=== PATIENT | male | born 1960 | race Caucasian/White ===

== ENCOUNTER 2019-04-09 13:32 | Emergency (ER) | payer OTHER ==
[~2019-04-09] VITALS: Ht 182.9 cm; Wt 117.9 kg
[2019-04-09 13:58] LABS: BASOPHILS ABSOLUTE AUTO 0.03 K/mm3 (0.00-0.23); BASOPHILS PERCENT AUTO 0 % (0-2); EOSINOPHILS ABSOLUTE AUTO 0.05 K/mm3 (0.00-0.68); EOSINOPHILS PERCENT AUTO 0 % (0-6); Hematocrit 48.3 % (37.0-53.0); Hemoglobin 17.2 g/dL (13.5-17.5); IMMATURE GRAN ABSOLUTE AUTO 0.08 K/mm3 (0.00-0.10); IMMATURE GRAN PERCENT AUTO 1 % (0-1); LYMPHOCYTES ABSOLUTE AUTO 2.31 K/mm3 (0.84-5.20); LYMPHOCYTES PERCENT AUTO 14 % (21-46); MONOCYTES ABSOLUTE AUTO 0.88 K/mm3 (0.16-1.47); MONOCYTES PERCENT AUTO 6 % (4-13); Mean Corpuscular HGB Conc 35.6 g/dL (31.5-36.5); Mean Corpuscular Volume 87 fL (80-100); Mean Platelet Volume 8.7 fL (9.1-12.4); NEUTROPHILS ABSOLUTE AUTO 12.71 K/mm3 (1.96-9.15); NEUTROPHILS PERCENT AUTO 79 % (41-73); Platelet Count 257 K/mm3 (150-400); RDW Coefficient Variation 11.4 % (11.7-14.2); RDW Standard Deviation 36.9 fL (35.1-46.3); Red Blood Cell Count 5.55 M/mm3 (4.30-5.90); White Blood Cell Count 16.06 K/mm3 (4.00-11.30)
[2019-04-09 14:28] LABS: Albumin, Blood 3.8 g/dL (3.4-5.0); Albumin/Globulin Ratio 1.1 (0.8-1.8); Bilirubin, Total 0.6 mg/dL (0.1-1.0); Bun/Creatinine Ratio 27.5 (12.0-20.0); Calcium, Blood 9.5 mg/dL (8.5-10.1); Creatinine, Blood 1.53 mg/dL (0.60-1.20); Globulin, Blood 3.6 g/dL (2.2-4.0); Potassium, Blood 3.7 mmol/L (3.5-5.5); Total Protein, Blood 7.4 g/dL (6.4-8.2)
[2019-04-09 15:46] LABS: Source, Urine Clean Catch
[2019-04-09] MEDS ORDERED: CHLO25B (16:03)
[2019-04-09] MEDS ORDERED: METF500 (16:04)
[2019-04-09] MEDS ORDERED: GLIP5 (16:04)
[2019-04-09 16:14] LABS: Bilirubin, Urine Neg (Neg); Blood, Urine Neg (Neg); Glucose Qualitative, Urine Neg (Neg); Ketones, Urine 1+ (Neg); Leukocyte Esterase, Urine Neg (Neg); Nitrite, Urine Neg (Neg); Protein, Urine 2+ (Neg); Urobilinogen, Urine NORM (Normal)
[2019-04-09 16:29] LABS: Appearance, Urine Clear (Clear); Color, Urine Yellow (P-Yellow)
[2019-04-09 16:39] LABS: U Amphetamine Screen Not Detected; U Barbituate Screen Not Detected; U Benzodiazapine Screen Not Detected; U Buprenorphine Screen Not Detected; U Cannabinoids Screen DETECTED; U Cocaine Screen Not Detected; U Methadone Screen Not Detected; U Methamphetamine Screen Not Detected; U Opiates Screen DETECTED; U Oxycodone Screen Not Detected; U Phencyclidine Screen Not Detected; U Propoxyphene Screen Not Detected
[2019-04-09 16:45] LABS: Bacteria Few /hpf; Red Blood Cells, Urine 0-2 /hpf (0-2); Squamous Epithelial Cells Few /hpf (Few)
== END 2019-04-09 17:15 | disposition home or self-care (01) ==
LOC: ER 13:32
PROVIDERS: Emergency Medicine
DX: R53.1 Weakness (principal); R41.0 Disorientation, unspecified; N28.9 Disorder of kidney and ureter, unspecified; E11.9 Type 2 diabetes mellitus without complications; Z86.73 Personal history of transient ischemic attack (TIA), and cerebral infarction without residual deficits
CPT/HCPCS: 70450; 80053; 81001; 82947; 85025; 93005; 93010; 99285-25; G0480

== ENCOUNTER 2019-10-17 16:35 | Emergency (ER) | payer OTHER ==
[~2019-10-17] VITALS: Ht 188 cm; Wt 104.3 kg
[~2019-10-17 16:35] MED LIST: CHLO25B; GLIP5; METF500
[2019-10-17] MEDS ORDERED: Metformin HCl750 MG PO (18:47)
[2019-10-17] MEDS ORDERED: Aspir 8181 MG PO (18:47)
[2019-10-17] MEDS ORDERED: LISI20 PO (18:49)
[2019-10-17] MEDS ORDERED: CHLO25B PO (18:49)
[2019-10-17] MEDS ORDERED: BASAGLAR K100 UNIT/2 SC (20:00)
== END 2019-10-17 17:44 | disposition home or self-care (01) ==
LOC: ER 16:35
DX: R53.1 Weakness (principal); R20.2 Paresthesia of skin; E11.9 Type 2 diabetes mellitus without complications; F17.200 Nicotine dependence, unspecified, uncomplicated; Z86.73 Personal history of transient ischemic attack (TIA), and cerebral infarction without residual deficits; Z79.84 Long term (current) use of oral hypoglycemic drugs
CPT/HCPCS: 99285-25

== ENCOUNTER 2019-10-17 17:44 | Inpatient (IN) | payer OTHER ==
[~2019-10-17] VITALS: Ht 182.9 cm; Wt 99.0 kg
[2019-10-17 18:28] LABS: BASOPHILS ABSOLUTE AUTO 0.03 K/mm3 (0.00-0.23); BASOPHILS PERCENT AUTO 0 % (0-2); EOSINOPHILS ABSOLUTE AUTO 0.03 K/mm3 (0.00-0.68); EOSINOPHILS PERCENT AUTO 0 % (0-6); Hemoglobin 14.2 g/dL (13.5-17.5); IMMATURE GRAN ABSOLUTE AUTO 0.13 K/mm3 (0.00-0.10); IMMATURE GRAN PERCENT AUTO 1 % (0-1); LYMPHOCYTES ABSOLUTE AUTO 1.45 K/mm3 (0.84-5.20); LYMPHOCYTES PERCENT AUTO 8 % (21-46); MONOCYTES ABSOLUTE AUTO 1.12 K/mm3 (0.16-1.47); MONOCYTES PERCENT AUTO 6 % (4-13); Mean Corpuscular HGB Conc 34.6 g/dL (31.5-36.5); Mean Corpuscular Volume 92 fL (80-100); Mean Platelet Volume 8.8 fL (9.1-12.4); NEUTROPHILS ABSOLUTE AUTO 15.96 K/mm3 (1.96-9.15); NEUTROPHILS PERCENT AUTO 85 % (41-73); Platelet Count 228 K/mm3 (150-400); RDW Coefficient Variation 11.3 % (11.7-14.2); RDW Standard Deviation 38.5 fL (35.1-46.3); Red Blood Cell Count 4.44 M/mm3 (4.30-5.90); White Blood Cell Count 18.72 K/mm3 (4.00-11.30)
[2019-10-17] MEDS ORDERED: Aspir 8181 MG PO (18:47)
[2019-10-17] MEDS ORDERED: Metformin HCl750 MG PO (18:47)
[2019-10-17 18:49] LABS: Alanine Aminotransfer (ALT/SGP 25 U/L (12-78); Albumin, Blood 3.5 g/dL (3.4-5.0); Albumin/Globulin Ratio 0.9 (0.8-1.8); Alk Phos 59 U/L (50-136); Anion Gap 11 mmol/L (6-16); Aspartate Aminotrans (AST/SGOT 12 U/L (12-37); Bilirubin, Total 0.8 mg/dL (0.1-1.0); Blood Urea Nitrogen 45 mg/dL (8-24); Bun/Creatinine Ratio 22.6 (12.0-20.0); CO2, Blood 21 mmol/L (21-32); Calcium, Blood 9.1 mg/dL (8.5-10.1); Chloride, Blood 106 mmol/L (98-108); Creatinine, Blood 1.99 mg/dL (0.60-1.20); Ethanol (Alcohol), Blood, Med <3 mg/dL; Globulin, Blood 3.7 g/dL (2.2-4.0); Glomerular Filtration Rate 36 (60-); Glucose, Blood 178 mg/dL (70-99); Potassium, Blood 4.2 mmol/L (3.5-5.5); Sodium, Blood 138 mmol/L (136-145); Total Protein, Blood 7.2 g/dL (6.4-8.2)
[2019-10-17] MEDS ORDERED: CHLO25B PO (18:49)
[2019-10-17] MEDS ORDERED: LISI20 PO (18:49)
[2019-10-17 18:58] LABS: Source, Urine Clean Catch
[2019-10-17 19:01] LABS: Bilirubin, Urine Neg (Neg); Blood, Urine Neg (Neg); Glucose Qualitative, Urine Neg (Neg); Ketones, Urine Neg (Neg); Leukocyte Esterase, Urine Neg (Neg); Nitrite, Urine Neg (Neg); Protein, Urine Neg (Neg); Urobilinogen, Urine NORM (Normal)
[2019-10-17 19:05] LABS: Appearance, Urine Clear (Clear); Color, Urine Yellow (P-Yellow)
[2019-10-17 19:26] LABS: U Amphetamine Screen Not Detected; U Barbituate Screen Not Detected; U Benzodiazapine Screen Not Detected; U Buprenorphine Screen Not Detected; U Cannabinoids Screen Not Detected; U Cocaine Screen Not Detected; U Methadone Screen Not Detected; U Methamphetamine Screen Not Detected; U Opiates Screen Not Detected; U Oxycodone Screen Not Detected; U Phencyclidine Screen Not Detected; U Propoxyphene Screen Not Detected
[2019-10-17] MEDS ORDERED: BASAGLAR K100 UNIT/2 SC (20:00)
[2019-10-18 04:06] LABS: BASOPHILS ABSOLUTE AUTO 0.04 K/mm3 (0.00-0.23); BASOPHILS PERCENT AUTO 0 % (0-2); EOSINOPHILS ABSOLUTE AUTO 0.03 K/mm3 (0.00-0.68); EOSINOPHILS PERCENT AUTO 0 % (0-6); Hematocrit 41.5 % (37.0-53.0); Hemoglobin 14.1 g/dL (13.5-17.5); IMMATURE GRAN ABSOLUTE AUTO 0.12 K/mm3 (0.00-0.10); IMMATURE GRAN PERCENT AUTO 1 % (0-1); LYMPHOCYTES ABSOLUTE AUTO 1.81 K/mm3 (0.84-5.20); LYMPHOCYTES PERCENT AUTO 9 % (21-46); MONOCYTES ABSOLUTE AUTO 1.81 K/mm3 (0.16-1.47); MONOCYTES PERCENT AUTO 9 % (4-13); Mean Corpuscular HGB 31.5 pg (26.0-34.0); Mean Corpuscular Volume 93 fL (80-100); Mean Platelet Volume 8.9 fL (9.1-12.4); NEUTROPHILS ABSOLUTE AUTO 15.43 K/mm3 (1.96-9.15); NEUTROPHILS PERCENT AUTO 80 % (41-73); Platelet Count 214 K/mm3 (150-400); RDW Coefficient Variation 11.4 % (11.7-14.2); RDW Standard Deviation 38.7 fL (35.1-46.3); Red Blood Cell Count 4.47 M/mm3 (4.30-5.90); White Blood Cell Count 19.24 K/mm3 (4.00-11.30)
[2019-10-18 04:28] LABS: Anion Gap 10 mmol/L (6-16); Blood Urea Nitrogen 47 mg/dL (8-24); Bun/Creatinine Ratio 22.8 (12.0-20.0); CHOL/HDL RATIO 3.4; CO2, Blood 23 mmol/L (21-32); Calcium, Blood 9.1 mg/dL (8.5-10.1); Chloride, Blood 104 mmol/L (98-108); Cholesterol 178 mg/dL (50-200); Creatinine, Blood 2.06 mg/dL (0.60-1.20); Glomerular Filtration Rate 35 (60-); Glucose, Blood 175 mg/dL (70-99); HDL Cholesterol 52 mg/dL (>39); LDL/HDL RATIO 1.8; Low Density Lipoprotein Chol 93 mg/dL (0-110); Potassium, Blood 4.1 mmol/L (3.5-5.5); Sodium, Blood 137 mmol/L (136-145); Triglycerides 166 mg/dL (30-160); Very Low Density Lipoprot Chol 33 mg/dL (6-32)
--- NOTE | 2019-10-18 05:48 | NUR ---
SHIFT SUMMARY ASSUMED CARE OF PT AT 2220. 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 PT ASKED REPEATIVLY IF WE WILL EUTHANIZE HIM AND TO "PLEASE KILL ME". HEART SOUNDS REGULAR, PT RUNNING SINUS, DENIES CP. LUNG SOUNDS CLEAR, DENIES SOB. PT WAS INCONTINET T/O THE NIGHT, BUT ASKED FOR THE URINAL DESPITE ALREADY URINATING. PT STATES THAT HIS MOM TAKES CARE OF HIM AT HOME BUT ER NOTES SAY THAT HIS HAS BEEN TAKING CARE OF HIM. BED SIDE SWOLLOW EVALVE PROVED PT CAN SWOLLOW AM MEDICATIONS PER DOCTOR REQUEST BUT PT STILL NEEDS SPEECH EVALUATION. NO ACUTE EVENTS DURING THE NIGHT. PT SLEPT ALL NIGHT. CALL LIGHT IN REACH, BED IN LOWEST POSITION, WILL CONTINUE TO MONITOR UNTIL DAYSHIFT NURSE ARRIVES.
--- NOTE | 2019-10-18 12:26 | NUR ---
Pt resting in bed with his eyes closed. Pt is minimally responsive and breifly mumbles keeping his eyes closed. Assisted Bedside RN Jeanine with repositioning Pt in bed. Pt appears comfortable with no S/S of distress at this time. Spoke with Eduardo and discussed case. Prior to Pt visit spoke with Dr Tompkins and discussed case. Called and spoke with Pt's friend Andigwen and Pt's mother Becki through [address] conference call. Provided update and engaged in therapeutic discussion regarding code status. Educated on life sustaining measures including risk factor and implications. Mother Becki would like Pt to be DNR and is requesting friend Andigwen be the decision maker. Andigwen will make decisions for Pt as needed. Answered questions and discussed concerns. Family is requesting routine updates. Family expresses appreciation of call and reports no other concerns at this time. Spoke with Dr Tompkins and relayed family's wishes for DNR. Changed code status to DNR per V/O from Dr Tompkins. Palliative Care will remain available.
--- NOTE | 2019-10-18 18:32 | NUR ---
PT SUMMARY: PT STILL CONFUSED, UNABLE TO STATE NAME AND BUT IS ABLE TO ANSWER QUESTIONS, FLIGHT OF IDEAS DURING CONVERSATION. PT HAD MRI SCAN SHOWS ACUTE ISHEMIC ON R MCA, RIGHT CAROTID 100% OCCLUDED, LEFT CAROTID 60-50% OCC. EF 60-65% PER ECHO. PT IS NOT CANDIDATE FOR SURGERY AT THIS TIME PER DR. TAMY HOLBROOK TO CONTINUE PT/OT, PT CHANGED TO MEDICAL STATUS WITH NO TELE, VITALS HAS BEEN STABLE FOR THE SHIFT, ORDER TO KEEP PT NPO, CLINIMIX STARTED AT 125 MLS/HR. LUNGS COARSE ON THE UPPER LOBES ORAL SUCTION DONE OFTEN DUE TO INCREASE MUCUS. PT HAS BEEN REPOSITIONED Q 2HRS, STAYED IN BED MOST OF THE SHIFT, PALLIATIVE CONSULTED AND SWITCHED PT TO DNR STATUS. CALL LIGHTS WITHIN REACH WILL REPORT TO ONCOMING SHIFT
--- NOTE | 2019-10-18 19:24 | NUR ---
REPORT GIVEN TO KAM LAGOS, PT TO TRANSFER TO ROOM 305 MEDICAL FLOOR.
--- NOTE | 2019-10-18 19:45 | NUR ---
TRANSFER NOTE PATIENT TRANSFERED UP TO ROOM 305 AT APPROX THIS TIME. REPORT GIVEN TO PRIMARY RN BY DAY SHIFT RN. ALL BELONGINGS GATHERED AND SENT WITH PATIENT.
--- NOTE | 2019-10-18 19:50 | NUR ---
ASSUMED CARE RECEIVED REPORT FROM BRISEYDA GRIDCAP MACHINE OPERATOR. PT TRANSFERRED TO MEDICAL FLOOR VIA HOSPITAL BED, TRANSFERRED TO BED WITH ASSISTANCE OF 3. IN NO ACUTE DISTRESS, RESPS EVEN AND UNLABORED, DROWSY, BUT RESPONDING TO VERBAL STIMULI AND FOLLOWING SIMPLE DIRECTIONS. DENIES NEEDS AT THIS TIME. CALL LIGHT, POSSESSIONS IN REACH, WILL CONTINUE TO MONITOR.
--- NOTE | 2019-10-19 00:50 | NUR ---
SPOKE TO KARRI ZUNIGA REGARDING PT'S INCREASING BPS IN THE 170'S. NO NEW ORDERS RECEIVED. PT OK TO REMAIN PERMISSIVELY HYPERTENSIVE.
[2019-10-19 04:33] LABS: BASOPHILS ABSOLUTE AUTO 0.03 K/mm3 (0.00-0.23); BASOPHILS PERCENT AUTO 0 % (0-2); EOSINOPHILS ABSOLUTE AUTO 0.03 K/mm3 (0.00-0.68); EOSINOPHILS PERCENT AUTO 0 % (0-6); Hematocrit 41.7 % (37.0-53.0); Hemoglobin 13.9 g/dL (13.5-17.5); IMMATURE GRAN PERCENT AUTO 1 % (0-1); LYMPHOCYTES ABSOLUTE AUTO 0.73 K/mm3 (0.84-5.20); LYMPHOCYTES PERCENT AUTO 5 % (21-46); MONOCYTES ABSOLUTE AUTO 1.01 K/mm3 (0.16-1.47); MONOCYTES PERCENT AUTO 7 % (4-13); Mean Corpuscular HGB 31.8 pg (26.0-34.0); Mean Corpuscular HGB Conc 33.3 g/dL (31.5-36.5); Mean Corpuscular Volume 95 fL (80-100); Mean Platelet Volume 9.2 fL (9.1-12.4); NEUTROPHILS ABSOLUTE AUTO 13.24 K/mm3 (1.96-9.15); NEUTROPHILS PERCENT AUTO 87 % (41-73); Platelet Count 187 K/mm3 (150-400); RDW Coefficient Variation 11.4 % (11.7-14.2); RDW Standard Deviation 40.3 fL (35.1-46.3); Red Blood Cell Count 4.37 M/mm3 (4.30-5.90); White Blood Cell Count 15.14 K/mm3 (4.00-11.30)
[2019-10-19 04:51] LABS: Bun/Creatinine Ratio 31.2 (12.0-20.0); Creatinine, Blood 2.02 mg/dL (0.60-1.20); Potassium, Blood 4.3 mmol/L (3.5-5.5)
--- NOTE | 2019-10-19 07:34 | NUR ---
SHIFT SUMMARY PT RESTING COMFORTABLY, NO S/S ACUTE DISTRESS NOTED. WAS MONITORED EVERY 1-2 HOURS WITH NEEDS MET. NO ACUTE EVENTS NOTED T/O NIGHT, BPS REMAIN PERMISSIVELY HYPERTENSIVE. VS STABLE. REMAINS DROWSY AND ALERT TO SELF. DENIES NEEDS AT THIS TIME. CALL LIGHT, POSSESSIONS IN REACH, BED IN LOWEST POSITION WITH ALARMS ON. REPORT GIVEN TO YOLIS PERRY.
--- NOTE | 2019-10-19 19:09 | NUR ---
SHIFT SUMMARY PT RESPONDING TO VERBAL OR TACTILE STIMULI FOR MAJORITY OF SHIFT. PT OPENING EYES BUT QUICKLY FALLS BACK ASLEEP WHEN NOT BEING ENGAGED. NO MOVEMENT NOTED IN LEFT SIDE; RIGHT SIDE FOLLOWS SIMPLE COMMANDS, MOVEMENTS JERKY. PT STATES NAME/, PRESIDENT, EVENT AND SURROUNDINGS APPROPRIATELY. PT DOES NOT RESPONDS TO DATE/TIME, NAME OR CITY OF HOSPITAL; OTHERWISE PT SPEECH IS NONSENSICAL AT TIMES AND PT REPEATS WHAT HE IS HEARING. NO S/SX OF PAIN OR DISTRESS NOTED. ORAL CARE COMPLETED AT MEAL TIMES; PT UNABLE TO STAY AWAKE WHILE EATING, NO ORAL INPUT T/O SHIFT. CLARIFIED NPO STATUS; PER DR MEDEIROS, CONTINUES TO SPEECH THERAPY RECCOMENDATIONS. PT TURNED Q2 FOR COMFORT AND PRESSURE ULCER PREVENTION. SPO2 >90% NO S/Sx OF RESPIRATORY DISTRESS NOTED. PT CONTINUES TO RECEIVE CLINIMIX. VSS. NO OTHER ACUTE CHANGES NOTED. REPORT GIVEN TO ONCOMING RN.
--- NOTE | 2019-10-19 19:45 | NUR ---
ASSUMED CARE RECEIVED REPORT FROM YOLIS PERRY. ASSUMED CARE OF PT. RESTING COMFORTABLY AT THIS TIME, RESPS EVEN AND UNLABORED. NO ACUTE DISTRES NOTED. DENIES NEEDS AT THIS TIME. CALL LIGHT, POSSESSIONS IN REACH, BED IN LOWEST POSITION WITH ALARMS ON. WILL CONTINUE TO MONITOR.
--- NOTE | 2019-10-20 05:00 | NUR ---
SHIFT SUMMARY PT ASLEEP AT THIS TIME, NO S/S ACUTE DISTRESS NOTED. PT CALLING OUT FOR HELP ON OCCASION, ANSWERING SIMPLE YES/NO QUESTIONS, SPEAKING NON-SENSICAL PHRASES AT TIMES. TWITCHING NOTED TO RUE, LUE REMAINS FLACCID AND WEAK. TOLERATING SMALL AMOUNTS OF NECTAR THICK LIQUIDS WELL, SUCTIONED AFTER EACH INTAKE, TOLERATING WELL. MOIST, PRODUCTIVE COUGH PERSISTS. HOB MAINTAINED AT 30-45 DEGREES. REMAINS HYPERTENSIVE, BPS RANGING FROM 150-170'S SYSTOLIC. NO ACUTE EVENTS NOTED T/O NIGHT. CALL LIGHT, POSSESSIONS IN REACH, BED IN LOWEST POSITION WITH ALARMS ON. WILL CONTINUE TO MONITOR UNTIL DAY RN ASSUMES CARE.
--- NOTE | 2019-10-20 08:36 | NUR ---
ADVISED OF HIGH BLD PRESS 215/88. NO PRN. ORDER APRESOLINE 10 MG IV Q4 PRN FOR BP >160
[2019-10-20 09:04] LABS: BASOPHILS ABSOLUTE AUTO 0.02 K/mm3 (0.00-0.23); BASOPHILS PERCENT AUTO 0 % (0-2); EOSINOPHILS ABSOLUTE AUTO 0.03 K/mm3 (0.00-0.68); EOSINOPHILS PERCENT AUTO 0 % (0-6); Hematocrit 41.2 % (37.0-53.0); Hemoglobin 14.1 g/dL (13.5-17.5); IMMATURE GRAN ABSOLUTE AUTO 0.05 K/mm3 (0.00-0.10); IMMATURE GRAN PERCENT AUTO 0 % (0-1); LYMPHOCYTES ABSOLUTE AUTO 0.94 K/mm3 (0.84-5.20); LYMPHOCYTES PERCENT AUTO 7 % (21-46); MONOCYTES ABSOLUTE AUTO 1.32 K/mm3 (0.16-1.47); MONOCYTES PERCENT AUTO 10 % (4-13); Mean Corpuscular HGB 31.5 pg (26.0-34.0); Mean Corpuscular HGB Conc 34.2 g/dL (31.5-36.5); NEUTROPHILS ABSOLUTE AUTO 10.29 K/mm3 (1.96-9.15); NEUTROPHILS PERCENT AUTO 81 % (41-73); Platelet Count 215 K/mm3 (150-400); RDW Standard Deviation 37.4 fL (35.1-46.3); Red Blood Cell Count 4.47 M/mm3 (4.30-5.90); White Blood Cell Count 12.65 K/mm3 (4.00-11.30)
[2019-10-20 09:05] LABS: Mean Corpuscular Volume 92 fL (80-100)
[2019-10-20 09:32] LABS: Albumin/Globulin Ratio 0.7 (0.8-1.8); Bilirubin, Total 0.4 mg/dL (0.1-1.0); Bun/Creatinine Ratio 36.8 (12.0-20.0); Calcium, Blood 9.1 mg/dL (8.5-10.1); Creatinine, Blood 1.74 mg/dL (0.60-1.20); Globulin, Blood 4.3 g/dL (2.2-4.0); Potassium, Blood 4.3 mmol/L (3.5-5.5); Total Protein, Blood 7.3 g/dL (6.4-8.2)
--- NOTE | 2019-10-20 14:21 | NUR ---
UPDATED PATIENT MOM, WILVER, ON CONDITION. PER WILVER, MALICK STROKE 2015. MOVED TO RAHWAY 03/09. TIA 05/09 W/RT SIDED WEAKNESS. MOM NUMBER [phone]. FEMALE FRIEND ERIKA, .
--- NOTE | 2019-10-20 14:46 | NUR ---
TALKED TO ABOUT PATIENT CONDITION. UNABLE TO GET RESPONSE WITH VERBAL COMMAND OR STERNAL RUB. VS GOOD. STRONG PULSE. PATIENT REACTS TO SUCTIONING--MOVES RT HAND AND COUGHS. PATIENT WOULD RESPOND TO VERBAL COMMAND PRIOR TO THIS EPISODE. ORDER FOR CT HEAD WO CONTRAST TO SEE IF STROKE WORSENING.
--- NOTE | 2019-10-20 15:37 | NUR ---
BACK FROM CT
--- NOTE | 2019-10-20 17:04 | NUR ---
SEE PRIOR NOTES. AT THIS TIME PATIENT SLEEPING. UNLABORED RESPIRATIONS. MOVES RT HAND TO ADJUST PILLOW. TURNED Q 2 HOURS. CARE TAKEN TO NOT TO PULL ON LEFT SHLDR POSSIBLITY OF SUBLEXING. NO RESPONSE WITH LEFT SIDE. INCONTINENT OF URINE. IV PATENT W/NACL RUNNING. WCTM
--- NOTE | 2019-10-20 17:08 | NUR ---
PER OK TO D'C NEURO CHECKS AND CONT. SAT MONITOR
--- NOTE | 2019-10-20 19:45 | NUR ---
ASSUMED CARE RECEIVED REPORT FROM YOLIS YANES. ASSUMED CARE OF PT. COMFORTABLE AT THIS TIME, SLEEPING. NO ACUTE DISTRESS NOTED. LOCALIZING TO PAINFUL STIMULI, UNRESPONSIVE TO VERBAL STIMULI, NO ATTEMPTS AT VOCALIZATION NOTED. RESPS EVEN AND UNLABORED. DENIES NEEDS AT THIS TIME. CALL LIGHT, POSSESSIONS IN REACH, BED ALARM ON. WILL CONTINUE TO MONITOR.
--- NOTE | 2019-10-20 21:30 | NUR ---
PHYSICIAN COMMUNICATION SPOKE TO KARRI ZUNIGA REGARDING PT'S BLOOD PRESSURES. ORDERS RECEIVED. DISCUSSED THE CONVERSATION WITH PT FAMILY REGARDING CHANGING TO COMFORT CARE STATUS D/T POOR PROGNOSIS. WILL CONTINUE TO MONITOR AND REASSESS PT NEEDED.
--- NOTE | 2019-10-21 02:30 | NUR ---
UPDATE THIS RN AND DIVIDEND DEPOSIT VOUCHER CLERK ASSESSING PT. PT SHOWING CONSISTENT CHANGES IN CONDITION. PHONE CALL PLACED TO UPDATE FAMILY MEMBERS REGARDING PT'S CHANGE IN CONDITION, ENCOURAGED TO COME SEE PT SOON THEY ARE ABLE. QUESTIONS AND CONCERNS ADDRESSED. THIS RN NOTIFYING ER SCREENING STATION OF PT FAMILY MEMBERS THAT WILL BE COMING TO SEE PT. PT COMFORTABLE, NEEDS ADDRESSED. CALL LIGHT AND POSSESSIONS IN REACH. WILL CONTINUE TO MONITOR.
--- NOTE | 2019-10-21 02:50 | NUR ---
PHYSICIAN COMMUNICATION SPOKE TO DR. MOSER REGARDING PT'S CHANGE IN CONDITION AND VS. PT HYPERTENSIVE AND FEBRILE, SBP >220. ORDERS RECEIVED.
--- NOTE | 2019-10-21 04:45 | NUR ---
UPDATE THIS RN ENTERING PT ROOM AFTER HEARING PT GASP FOR AIR. THIS RN AND CHARGE RNS IN ROOM ASSESSING PT. PT NOTED TO HAVE PASSED PEACEFULLY AT 0435. THIS RN NOTIFYING FAMILY AND PHYSICIAN OF PT'S TIME OF . PT CLEANSED AND PLACED IN POSITION OF COMFORT.
--- NOTE | 2019-10-21 10:15 | NUR ---
MANPREET'S MOTHER WILVER CALLED HERE AND SAYS ARRANGEMENTS HAVE BEEN MADE WITH [employer] TO PICK HIM UP AND THAT NO FAMILY WOULD BE COMING IN HERE TO SEE HIM. I CONTACTED ASHLYN AT THE DONOR LINE TO UPDATE HER. SHE HAS THE CONTACT INFO. FOR MANPREET AND WILL FOLLOW UP. 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 ASHLYN SAYS HE IS CLEAR TO GO TO THE MORTURARY.
--- NOTE | 2019-10-21 10:55 | NUR ---
DUANE AT [facility] HAS RETURNED MY PHONE CALL. THEY WILL COME TO PICK MANPREET UP. I NOTIFIED HER HE IS A POTENTIAL DONOR.
== END 2019-10-21 04:35 | DRG 64 ==
LOC: ER 17:44 → PCU 22:26 → MEDS 10-18 19:50
PROVIDERS: Emergency Medicine; Internal Medicine; Nurse Practitioner Acute Care; ADMIT Internal Medicine
DX: I63.511 Cerebral infarction due to unspecified occlusion or stenosis of right middle cerebral artery (principal); G93.6 Cerebral edema; I69.354 Hemiplegia and hemiparesis following cerebral infarction affecting left non-dominant side; G93.40 Encephalopathy, unspecified; I10 Essential (primary) hypertension; Z91.81 History of falling; E11.9 Type 2 diabetes mellitus without complications; Z79.4 Long term (current) use of insulin; F17.210 Nicotine dependence, cigarettes, uncomplicated; Z51.5 Encounter for palliative care; Z79.82 Long term (current) use of aspirin; I70.90 Unspecified atherosclerosis; F29 Unspecified psychosis not due to a substance or known physiological condition
CPT/HCPCS: 36415; 70450; 70551; 80048; 80053; 80061; 81003; 82947; 85025; 92610; 93005; 93010; 93306; 93880; 96374; 97112; 97163; 97167; 97530; 99285-25; A9270-GY; G0480; J0360; J1100; J2310; J7030